=== PATIENT | female | born 1975 | race Hispanic/Latino ===

== ENCOUNTER 2019-09-10 17:26 | Inpatient (IN) | payer BC, OTHER ==
[~2019-09-10] VITALS: Ht 157.5 cm; Wt 72.6 kg
[2019-09-10 18:08] LABS: BASOPHILS % 0.4 % (0.0-1.0); EOSINOPHILS # (AUTO) 0.1 (0.0-0.4); EOSINOPHILS % 1.1 % (0.0-6.0); HEMATOCRIT 39.4 % (34.2-44.1); HEMOGLOBIN 12.7 g/dL (12.0-16.0); LYMPHOCYTES # (AUTO) 2.1 (1.0-3.2); LYMPHOCYTES % 23.2 % (18.0-39.1); MEAN CORPUSCULAR HEMOGLOBIN 28.8 pg (28-32); MEAN CORPUSCULAR HGB CONC 32.2 g/dL (31-35); MEAN CORPUSCULAR VOLUME 89.3 fL (81-99); MONOCYTES # (AUTO) 0.8 (0.2-0.8); MONOCYTES % 8.8 % (4.4-11.3); NEUTROPHILS % 66.2 % (38.7-80.0); PLATELET COUNT 336 x10e3/uL (140-360); RED BLOOD COUNT 4.41 x10e6/uL (3.6-5.1); RED CELL DISTRIBUTION WIDTH 13.1 % (11.7-14.4)
[2019-09-10 18:22] LABS: INR 0.88; PROTHROMBIN TIME 12.4 seconds (11.9-14.5)
--- NOTE | 2019-09-10 18:30 | Emergency Department Note ---
History of Present Illnes History of Present Illness Chief Complaint: Abdominal Complaints History of Present Illness This is a 44 year old female arrived to the ED for ruptured appendicitis- c/o RLQ with n/v. Historian: Patient Arrival Mode: Car Severity: moderate Onset quality: sudden Duration (how long): hour(s) Progression: worsening Treatments prior to arrival: other (seen by GI physician, has an outpt CT) Past Medical/Family History Physician Review I have reviewed the patient's past medical and family history. Any updates have been documented here. Past Medical History Recent Fever: No Clinical Suspicion of Infectio: No New/Unexplained Change in Ment: No Past Medical History: None Past Surgical History: Cholecysctectomy, Other Surgery: tonsillectomy Social History Smoking Cessation: Former smoker Counseling Performed: No Alcohol Use: None Any Illegal Drug Use: No TB Exposure/Symptoms: No Physically hurt or threatened: No Other Last Tetanus: utd Any Pre-Existing Lines (PICC,: No Is patient up to date on immun: Yes Last Flu: utd Last Pneumovax: ood Review of Systems Review of Systems Constitutional: no symptoms EENTM: no symptoms Cardiovascular: no symptoms Respiratory: no symptoms Gastrointestinal: abdominal pain, nausea, vomiting Genitourinary: no symptoms Musculoskeletal: no symptoms Neurological: no symptoms Psychological: no symptoms Endocrine: no symptoms Hematological/Lymphatic: no symptoms Review of other systems All other systems reviewed and negative. Physical Exam Related Data Allergies: Coded Allergies: No Known Allergies (Unverified , 09/10/19) Triage Vital Signs Vital Signs Date Time Temp Pulse Resp B/P (MAP) Pulse Ox O2 Delivery O2 Flow Rate FiO2 09/10/19 17:51 98.8 78 16 132/101 100 Vital signs reviewed: Yes Physical Exam CONSTITUTIONAL Constitutional: well-developed, well-nourished HENT HENT: normocephalic, atraumatic, oropharynx clear/moist, nose normal HENT L/R: left ext ear normal, right ext ear normal EYES Eyes: PERRL, conjunctivae normal NECK Neck: ROM normal PULMONARY Pulmonary: effort normal, breath sounds normal CARDIOVASCULAR Cardiovascular: regular rhythm, heart sounds normal, capillary refill normal, normal rate GASTROINTESTINAL Abdominal: soft, bowel sounds normal, tender, guarding GENITOURINARY Genitourinary: exam deferred SKIN Skin: warm, dry MUSCULOSKELETAL Musculoskeletal: ROM normal NEUROLOGICAL Neurological: alert, oriented x 3, no gross motor or sensory deficits PSYCHOLOGICAL Psychological: mood/affect normal, judgement normal Results Laboratory Result Diagram: 09/10/19 5166 Laboratory Laboratory Tests Test 09/10/19 17:45 White Blood Count 9.11 x10e3/uL (4.8-10.8) Red Blood Count 4.41 x10e6/uL (3.6-5.1) Hemoglobin 12.7 g/dL (12.0-16.0) Hematocrit 39.4 % (34.2-44.1) Mean Corpuscular Volume 89.3 fL (81-99) Mean Corpuscular Hemoglobin 28.8 pg (28-32) Mean Corpuscular Hemoglobin Concent 32.2 g/dL (31-35) Red Cell Distribution Width 13.1 % (11.7-14.4) Platelet Count 336 x10e3/uL (140-360) Neutrophils (%) (Auto) 66.2 % (38.7-80.0) Lymphocytes (%) (Auto) 23.2 % (18.0-39.1) Monocytes (%) (Auto) 8.8 % (4.4-11.3) Eosinophils (%) (Auto) 1.1 % (0.0-6.0) Basophils (%) (Auto) 0.4 % (0.0-1.0) Neutrophils # (Auto) 6.0 (2.1-6.9) Lymphocytes # (Auto) 2.1 (1.0-3.2) Monocytes # (Auto) 0.8 (0.2-0.8) Eosinophils # (Auto) 0.1 (0.0-0.4) Basophils # (Auto) 0.0 (0.0-0.1) Absolute Immature Granulocyte (auto 0.03 x10e3/uL (0-0.1) Prothrombin Time 12.4 seconds (11.9-14.5) Prothromb Time International Ratio 0.88 Lab results reviewed: Yes Imaging Imaging results reviewed: Yes Critical Care Time Subsequent provider I assumed direction of critical care for this patient from another provider of my specialty. Assessment & Plan Assessment & Plan Final Impression: (1) Appendicitis Assessment & Plan CBC, CMP CT AP findings discussed with Dr. M. Apodaca transfer to OR Depart Disposition: ADMITTED Last Vital Signs Date Time Temp Pulse Resp B/P (MAP) Pulse Ox O2 Delivery O2 Flow Rate FiO2 09/10/19 18:00 77 16 126/97 100 09/10/19 17:51 98.8 BENITO MAIN DO September 10, 2019 18:14
[2019-09-10 18:31] LABS: ALANINE AMINOTRANSFERASE 28 IU/L (0-55); ALBUMIN 3.5 g/dL (3.5-5.0); ALBUMIN/GLOBULIN RATIO 0.9 (0.8-2.0); ALKALINE PHOSPHATASE 75 IU/L (40-150); ANION GAP 12.2 mmol/L (8-16); BLOOD UREA NITROGEN 5 mg/dL (7-26); BUN/CREATININE RATIO 8 (6-25); CALCIUM 8.8 mg/dL (8.4-10.2); CARBON DIOXIDE 23 mmol/L (22-29); CHLORIDE 102 mmol/L (98-107); CREATININE, SERUM 0.62 mg/dL (0.57-1.11); EST GLOMERULAR FILTRATION RATE > 60 ML/MIN (60-); GLUCOSE 82 mg/dL (74-118); POTASSIUM 3.2 mmol/L (3.5-5.1); SODIUM 134 mmol/L (136-145)
[2019-09-10] MEDS ORDERED: SODIUM CHLORIDE 0.9% 1000ML 1,000 ML ONE (18:38)
[2019-09-10] MEDS ORDERED: SODIUM CHLORIDE 0.9% 1000ML 1,000 ML IV ONE (18:45)
[2019-09-10] MEDS ORDERED: SUGAMMADEX SODIUM 200 MG/2 ML VIAL IV ONE (18:48)
[2019-09-10] MEDS ORDERED: ROCURONIUM BROMIDE 10 MG/ML 5ML VIAL IV ONE (19:33)
[2019-09-10] MEDS ORDERED: LIDOCAINE HCL 2% LOCAL INJ 5 ML SDV VIAL INJ ONE (19:33)
[2019-09-10] MEDS ORDERED: SEVOFLURANE INHAL SOLN 250 ML PEN BTL ONE (19:33)
[2019-09-10] MEDS ORDERED: ONDANSETRON HCL INJ 2MG/ML 2ML 2 MG/ML VIAL ONE (19:33)
[2019-09-10] MEDS ORDERED: ACETAMINOPHEN 1000 MG/100 ML IV ONE (19:33)
[2019-09-10] MEDS ORDERED: DEXAMETHASONE SOD PHOS INJ 4 MG/ML VIAL ONE (19:33)
[2019-09-10] MEDS ORDERED: PROPOFOL IV EMULSION 10 MG/ML 20 ML VIAL ONE (19:33)
[2019-09-10] MEDS ORDERED: FENTANYL CITRATE/PF 100MCG/2 ML INJ ONE ×2 (19:53→21:18)
[2019-09-10] MEDS ORDERED: MORPHINE SULFATE INJ 10 MG/ML ONE (19:53)
[2019-09-10] MEDS ORDERED: MIDAZOLAM HCL 2 MG/2 ML VIAL ONE (19:53)
[2019-09-10] MEDS ORDERED: BUPIVACAINE 0.25%/EPI 30ML SDV INJ ONE (19:54)
[2019-09-10] MEDS ORDERED: HYDROCODONE/APAP 7.5MG-325MG 1 EA TAB PO PRN (21:00)
[2019-09-10] MEDS ORDERED: ACETAMINOPHEN 1000 MG/100 ML IV PRN (21:00)
--- OUTSIDE RECORDS SUMMARY | 2019-09-10 21:13 | XMS REPORT ---
Author Author [facility] t Organization [facility] Address [address] [place] [address] Phone Unavailable Care Team Providers Care Janitor Supervisor Name Role Phone MD CANDIDA WEBB PCP LUCRECIA APODACA Attkasandra Unavailable Advance Directives Directive Decision Effective Date Termination Date Comments Sour ce Yes N/A [facility] Problems Condition Name Condition Details Condition Category Status Onset Date Resolution Date Last Treatment Date Treating Clinician Comments Source Appendicitis Problem [facility] Allergies, Adverse Reactions, Alerts This patient has no known allergies or adverse reactions. Social History Social Habit Start Date Stop Date Quantity Comments Source Sex Assigned At 1975 00:00:00 1975 00:00:00 Female [facility] Medications This patient has no known medications. Vital Signs Vital Name Observation Time Observation Value Comments Source Weight 2019-09-10 17:51:00 160 [lb_av] [facility] BMI (Body Mass Index) 2019-09-10 17:51:00 29.3 kg/m2 [facility] Procedures Procedure Date / Time Performed Performing Clinician Aaron e Computed tomography of abdomen and pelvis with contrast 00:00:00 [facility] Encounters Start Date/Time End Date/Time Encounter Type Admission Type Attendi [facility] Care Department Encounter ID Source 2019-09-10 17:26:00 2019-09-10 18:51:00 Departed Emergency Room [facility] [id number] [facility] [place] 2019-09-10 15:55:00 2019-09-10 15:55:00 Registered Clinic 3 LUCRECIA APODACA [facility] [id number] [facility] Results Test Description Test Time Test Comments Results Result Comments Source Blood leukocytes automated count (number/volume) 2019-09-10 17:45:00 Test Item White Blood Count (test code = 6690-2) 9.11 [facility] erythrocytes automated count (number/volume)2019-09-10 17:45:00* Test Item Value Reference Range Interpretation Comments Red Blood Count (test code = 789-8) 4.41 [facility] hemoglobin measurement (moles/volume)2019-09-10 17:45:00* Test Item Value Reference Range Interpretation Comments Hemoglobin (test code = 34461-2) 12.7 [facility]Autom[facility] blood hematocrit (volume fraction)2019-09-10 17:45:00* Test Item Value Reference Range Interpretation Comments Hematocrit (test code = 4544-3) 39.4 [facility] CampusAutom[facility] erythrocyte mean corpuscular itdtbn1227-72-38 17:45:00* Test Item Value Reference Range Interpretation Comments Mean Corpuscular Volume (test code = 787-2) 89.3 [facility] CampusAutom[facility] erythrocyte mean corpuscular hemoglobin (mass per erythrocyte)2019-09-10 17:45:00* Test Item Value Reference Range Interpretation Comments Mean Corpuscular Hemoglobin (test code = 785-6) 28.8 [facility] CampusAutom[facility] erythrocyte mean corpuscular hemoglobin concentration measurement (mass/volume)2019-09-10 17:45:00* Test Item Value Reference Range Interpretation Comments Mean Corpuscular Hemoglobin Concent (test code = 786-4) 32.2 [facility] CampusRDW BjzJl-Gbl3243-15-22 17:45:00* Test Item Value Reference Range Interpretation Comments Red Cell Distribution Width (test code = 66061-1) 13.1 [facility] CampusAutom[facility] blood platelet count (count/volume)2019-09-10 17:45:00* Test Item Value Reference Range Interpretation Comments Platelet Count (test code = 777-3) 336 [facility] CampusAutomated blood segmented neutrophil count as percentage of total hgwufekvwj4629-91-63 17:45:00* Test Item Value Reference Range Interpretation Comments Neutrophils (%) (Auto) (test code = 90209-6) 66.2 [facility] CampusAutomated blood lymphocyte count as percentage ot total uhbhozsjzp9807-03-92 17:45:00* Test Item Value Reference Range Interpretation Comments Lymphocytes (%) (Auto) (test code = 736-9) 23.2 [facility] CampusAutomated blood monocyte count as percentage of total qeivuxlunf5094-35-75 17:45:00* Test Item Value Reference Range Interpretation Comments Monocytes (%) (Auto) (test code = 5905-5) 8.8 [facility] CampusAutomated blood eosinophil count as percentage of total qihksmizcu2911-64-03 17:45:00* Test Item Value Reference Range Interpretation Comments Eosinophils (%) (Auto) (test code = 713-8) 1.1 [facility] CampusAutomated blood basophil count as percentage of total hdiondufnd9766-44-65 17:45:00* Test Item Value Reference Range Interpretation Comments Basophils (%) (Auto) (test code = 706-2) 0.4 [facility] CampusFluoroscopic procedure less than one hour znpcvdqg5386-49-42 17:45:00* Test Item Value Reference Range Interpretation Comments IM GRANULOCYTES % (test code = IM GRANULOCYTES %) 0.3 [facility] CampusAutomated blood neutrophil count 2019-09-10 17:45:00* Test Item Value Reference Range Interpretation Comments Neutrophils # (Auto) (test code = 751-8) 6.0 [facility] CampusBlood lymphocytes count (number/volume) 2019-09-10 17:45:00* Test Item Value Reference Range Interpretation Comments Lymphocytes # (Auto) (test code = 75411-6) 2.1 [facility] CampusBlood monocytes automated count (number/volume)2019-09-10 17:45:00* Test Item Value Reference Range Interpretation Comments Monocytes # (Auto) (test code = 742-7) 0.8 [facility] CampusAutomated blood eosinophil count 2019-09-10 17:45:00* Test Item Value Reference Range Interpretation Comments Eosinophils # (Auto) (test code = 711-2) 0.1 [facility] CampusAutomated blood basophil count (count/volume)2019-09-10 17:45:00* Test Item Value Reference Range Interpretation Comments Basophils # (Auto) (test code = 704-7) 0.0 [facility] CampusFluoroscopic procedure less than one hour vxkxrbta8600-45-41 17:45:00* Test Item Value Reference Range Interpretation Comments Absolute Immature Granulocyte (auto (hannah t code = Absolute Immature Granulocyte (auto) 0.03 [facility] CampusProthrombin time (PT) in platelet poor plasma by coagulation rahcz4252-83-81 17:45:00* Test Item Value Reference Range Interpretation Comments Prothrombin Time (test code = 5902-2) 12.4 [facility] CampusINR in Platelet poor plasma by Coagulation aqtxi7718-78-33 17:45:00* Test Item Value Reference Range Interpretation Comments Prothromb Time International Ratio (test code = 6301-6) 0.88 [facility] Station[facility]um or plasma sodium measurement (moles/volume)2019-09-10 17:45:00* Test Item Value Reference Range Interpretation Comments Sodium Level (test code = 2951-2) 134 [facility] Stationerum or plasma potassium measurement (moles/volume)2019-09-10 17:45:00* Test Item Value Reference Range Interpretation Comments Potassium Level (test code = 2823-3) 3.2 [facility] Stationerum or plasma chloride measurement (moles/volume)2019-09-10 17:45:00* Test Item Value Reference Range Interpretation Comments Chloride Level (test code = 2075-0) 102 [facility] Stationerum or plasma carbon dioxide, total measurement (moles/volume)2019-09-10 17:45:00* Test Item Value Reference Range Interpretation Comments Carbon Dioxide Level (test code = 2028-9) 23 [facility] Stationerum or plasma anion iam2124-88-82 17:45:00* Test Item Value Reference Range Interpretation Comments Anion Gap (test code = 15629-6) 12.2 [facility] Stationerum or plasma urea nitrogen measurement (mass/volume)2019-09-10 17:45:00* Test Item Value Reference Range Interpretation Comments Blood Urea Nitrogen (test code = 3094-0) 5 [facility] Stationerum or plasma creatinine measurement (mass/volume)2019-09-10 17:45:00* Test Item Value Reference Range Interpretation Comments Creatinine (test code = 2160-0) 0.62 [facility] Stationerum or plasma urea nitrogen/creatinine mass [id number] 17:45:00* Test Item Value Reference Range Interpretation Comments BUN/Creatinine Ratio (test code = 3097-3) 8 [facility] CampusEstimated glomerular filtration rate (GFR) nzoaraayxbxiu3045-17-03 17:45:00* Test Item Value Reference Range Interpretation Comments Estimat Glomerular Filtration Rate (test code = 034579815) > 60 [facility] CampusGlucose eeqmsqetnhn3812-80-05 17:45:00* Test Item Value Reference Range Interpretation Comments Glucose Level (test code = EDF3463) 82 [facility] Stationerum or plasma calcium measurement (mass/volume)2019-09-10 17:45:00* Test Item Value Reference Range Interpretation Comments Calcium Level (test code = 66251-6) 8.8 [facility] Stationerum or plasma total bilirubin measurement (mass/volume)2019-09-10 17:45:00* Test Item Value Reference Range Interpretation Comments Total Bilirubin (test code = 1975-2) 0.5 [facility] CampusFluoroscopic procedure less than one hour chyjyegt8251-40-66 17:45:00* Test Item Value Reference Range Interpretation Comments Aspartate Amino Transf (AST/SGOT) (test code = Aspartate Amino Transf (AST/SGOT)) 16 [facility] Stationerum or plasma alanine aminotransferase measurement (enzymatic activity/volume)2019-09-10 17:45:00* Test Item Value Reference Range Interpretation Comments Alanine Aminotransferase (ALT/SGPT) (test code = 1742-6) 28 [facility] Stationerum or plasma protein measurement (mass/volume)2019-09-10 17:45:00* Test Item Value Reference Range Interpretation Comments Total Protein (test code = 2885-2) 7.2 [facility] Stationerum or plasma albumin measurement (mass/volume)2019-09-10 17:45:00* Test Item Value Reference Range Interpretation Comments Albumin (test code = 1751-7) 3.5 [facility] CampusPlasma globulin measurement (mass/volume) 2019-09-10 17:45:00* Test Item Value Reference Range Interpretation Comments Globulin (test code = 66109-0) 3.7 [facility] Stationerum or plasma albumin/globulin mass [id number] 17:45:00* Test Item Value Reference Range Interpretation Comments Albumin/Globulin Ratio (test code = 1759-0) 0.9 [facility] Stationerum or plasma alkaline phosphatase measurement (enzymatic activity/volume)2019-09-10 17:45:00* Test Item Value Reference Range Interpretation Comments Alkaline Phosphatase (test code = 6768-6) 75 [facility] CampusCT ABDOMEN/PELVIS [id number] 17:14:00 [facility] [address] [place] [address] Patient Name: ELENA HOWE MR #: [id number] : 1975 Age/Sex: 44/F Req #: [id number] Adm Physician: Ordered by: LUCRECIA APODACA MD t #: [id number] Location: [place] Room/Bed : Procedure: [id number] CT/CT ABDOMEN/PE LVIS W Exam Date: Exam Time: REPORT STATUS: Signed EXAMINATION: CT of the abdomen and pelvis with contrast. TECHNIQUE: Spiral CT images of the abdomen and pelvis were performed from the lung bases to the lesser trochanters after the intravenous administration of 100 cc of Isovue-370 and the oral administratio n of water. Coronal and sagittal reformatted images were obtained. JOSEPH RISON: None. CLINICAL HISTORY:Right lower quadrant pain for 5 days DISCUSSION: ABDOMEN/PELVIS: LOWER THORAX:Lung bases are clear. Bila teral breast implants are partially visualized. HEPATOBILIARY: No focal h epatic lesions. No intra or extrahepatic biliary ductal dilation. GALLBL ADDER: Cholecystectomy clips SPLEEN: No splenomegaly. PANCREAS: N o focal masses or ductal dilatation. ADRENALS: No adrenal nodules. KI DNEYS/URETERS: No hydronephrosis, stones, or solid mass lesions. Well-circumsc ribed fluid density structures in the left renal sinus, which measure approxim ately 1.3 and 1.6 cm (coronal images 63 and 60), consistent with peripelvic cy sts. PELVIC ORGANS/BLADDER: Uterus is unremarkable. T shaped IUD in place in the endometrial cavity. No adnexal masses. A well-circumscribed oval-shaped soft tissue density structure posterior to the uterus likely represents the r ight ovary. PERITONEUM/RETROPERITONEUM: No free air or free fluid. L YMPH NODES: No intra-abdominal, retroperitoneal, pelvic or inguinal lymphadeno cally. VESSELS: The celiac trunk,superior and inferior mesenteric and bilat eral renal arteries are patent The portal, superior mesenteric and splenic v eins are patent. GI TRACT: The appendix is dilated, measuring 1.2 cm in d iameter, and shows moderate wall thickening with marked enhancement, and moder ate surrounding inflammatory changes. No foci of extraluminal air or well-defi emmie enhancing fluid collections. Rest of the bowel shows no dilation or obst ruction. No pericolonic inflammatory changes. Stomach is unremarkable. BONES AND SOFT TISSUE: No aggressive lytic or suspicious sclerotic lesions. So ft tissues are grossly unremarkable. IMPRESSION: 1. Findings consi stent with acute appendicitis. No evidence of perforation or adjacent abscess formation. 2. Findings discussed with Dr. Apodaca September 10, 2019 at 1714 hours . Signed by: Dr. Catina Stanton M.D. on 09/10/2019 5:23 PM Dictat ed By: CATINA STANTON MD 1723 COPY TO: LUCRECIA APODACA MD Urine human chorionic gonadotropin (hCG) ufatwogih4597-14-45 16:40:00* Test Item Value Reference Range Interpretation Comments Urine Test (test code = 2106-3) NEGATIVE [facility]
[2019-09-11] VITALS (9 sets, daily range): BP systolic 99–126; BP diastolic 67–80
[2019-09-11] MEDS: HYDROMORPHONE 1MG/1ML INJ IV PRN ×7 (00:30→17:16)
--- NOTE | 2019-09-11 03:56 | Operative Report ---
DATE OF PROCEDURE: 09/10/2019 SURGEON: Hiram Fowler MD PREOPERATIVE DIAGNOSIS: Acute appendicitis. POSTOPERATIVE DIAGNOSIS: Acute retrocecal appendicitis. OPERATION PERFORMED: Laparoscopic appendectomy. ANESTHESIA: General. COMPLICATIONS: None. ESTIMATED BLOOD LOSS: Minimal. DESCRIPTION OF PROCEDURE: With the patient lying in bed in the supine position under good general endotracheal anesthesia, the abdomen was prepped with Betadine solution and draped in the usual manner. A Veress needle was introduced into the umbilicus and pneumoperitoneum was established without any difficulty. A 12 mm trocar was placed into the umbilicus and a 10 mm video laparoscope was placed into the intraabdominal cavity. Under direct vision, a 5 mm trocar was placed in the suprapubic region and another 5 mm trocar was placed in the left lower quadrant. Video laparoscopy at this point revealed an inflammatory mass stuck to the lateral wall on the right side consistent with appendicitis. The cecum was then mobilized medially and off the lateral gutter. The appendix was extremely enlarged and thickened, and it was tightly adherent and covered with the omentum anteriorly, and it was in a retrocecal position. The terminal ileum was stuck to the appendix. Once the omentum and the terminal ileum were , we were then able to dissect the mesentery of the appendix, which was then divided with 2 applications of the endoscopic vascular stapler. After this was done, the base of the appendix was rather inflamed, so we decided we needed to take a piece of base of the cecum in order to have a soft tissue that we could close. The echelon stapler was then introduced and 2 firings were necessary to come across the base of the cecum, making sure that we stayed away from the terminal ileum and the appendix was thus divided and . The appendix was then placed in a pouch and removed through the umbilical incision after enlarging the incision to allow for passage of the large specimen. The laparoscopy was then again carried out. The whole area was then thoroughly irrigated. Perfect hemostasis was ascertained. All layers were then closed. The midline fascia was closed with 2 nlzsuzr-al-ldsgf of 0 Vicryl. All layers were infiltrated on the way out with solution of 0.25% Marcaine. Subcutaneous tissue was approximated with 3-0 Vicryl and the skin was closed with subcuticular 5-0 Vicryl. Benzoin, Steri-Strips, and Band-Aids were applied. The sponge, lap, and needle counts were correct. The patient tolerated the procedure well and returned to the recovery room in stable condition. MD CHRISTA Khalil/KYE /[id number]
[2019-09-11] MEDS: PIPER-TAZ 3.375 GM 50 ML IV SCH ×5 (05:55→23:47)
[2019-09-11 06:19] LABS: BASOPHILS % 0.1 % (0.0-1.0); HEMATOCRIT 37.3 % (34.2-44.1); HEMOGLOBIN 12.2 g/dL (12.0-16.0); LYMPHOCYTES # (AUTO) 0.7 (1.0-3.2); LYMPHOCYTES % 7.3 % (18.0-39.1); MEAN CORPUSCULAR HEMOGLOBIN 29.5 pg (28-32); MEAN CORPUSCULAR HGB CONC 32.7 g/dL (31-35); MEAN CORPUSCULAR VOLUME 90.3 fL (81-99); MONOCYTES # (AUTO) 0.3 (0.2-0.8); MONOCYTES % 3.5 % (4.4-11.3); NEUTROPHILS # (AUTO) 8.2 (2.1-6.9); NEUTROPHILS % 88.9 % (38.7-80.0); PLATELET COUNT 317 x10e3/uL (140-360); RED BLOOD COUNT 4.13 x10e6/uL (3.6-5.1)
[2019-09-11] MEDS: DEXTROSE 5%/LACTATED RINGERS 1,000 ML IV SCH ×4 (07:00→21:40)
[2019-09-11 07:10] LABS: BLOOD UREA NITROGEN 5 mg/dL (7-26); BUN/CREATININE RATIO 8 (6-25); CALCIUM 8.1 mg/dL (8.4-10.2); CARBON DIOXIDE 20 mmol/L (22-29); CHLORIDE 105 mmol/L (98-107); CREATININE, SERUM 0.63 mg/dL (0.57-1.11); EST GLOMERULAR FILTRATION RATE > 60 ML/MIN (60-); GLUCOSE 146 mg/dL (74-118); SODIUM 134 mmol/L (136-145)
--- NOTE | 2019-09-11 08:00 | NUR ---
AA&OX3, RA, ENCOURAGED AMBULATION POC, PT VERBALIZED UNDERSTANDING, CALL LIGHT WITHIN REACH
--- NOTE | 2019-09-11 12:00 | NUR ---
MEDICATED PER MD ORDER FOR 6/10 ABD PAIN, EDUCATED TO CALL FOR ASSISTANCE PRIOR TO GETTING OOB, PT VERBALIZED UNDERSTANDING, CALL LIGHT WITHIN REACH
[2019-09-11 12:13] LABS: BAND NEUTROPHILS % (MANUAL) 5 %; LYMPHOCYTES % (MANUAL) 8 % (19-48); MONOCYTES % (MANUAL) 4 % (3.4-9.0); NEUTROPHILS % (MANUAL) 83 % (40-74); PLATELET ESTIMATE ADEQUATE; PLATELET MORPHOLOGY COMMENT NORMAL
[2019-09-11 12:14] LABS: RBC MORPHOLOGY COMMENT NORMAL
[2019-09-11] MEDS ORDERED: ZOLPIDEM TARTRATE 10 MG TAB PO PRN (13:45)
--- NOTE | 2019-09-11 17:17 | NUR ---
TOLERATING PO AT THIS TIME, MEDICATED PER MD ORDER FOR 9/10 ABD PAIN, EDUCATED TO CALL FOR ASSISTANCE BEFORE GETTING OOB, PT VERBALIZED UNDERSTANDING, CALL LIGHT WITHIN REACH
[2019-09-11] MEDS: PANTOPRAZOLE 40 MG 10ML VIAL IV SCH ×2 (21:42)
[2019-09-12 00:20] VITALS: BP 126/76
[2019-09-12 04:00] VITALS: BP 102/60
[2019-09-12] MEDS: HYDROMORPHONE 1MG/1ML INJ IV PRN ×3 (05:10→13:14)
[2019-09-12] MEDS: PIPER-TAZ 3.375 GM 50 ML IV SCH ×2 (05:59→11:51)
[2019-09-12 06:16] LABS: BASOPHILS % 0.5 % (0.0-1.0); EOSINOPHILS # (AUTO) 0.1 (0.0-0.4); EOSINOPHILS % 0.6 % (0.0-6.0); HEMOGLOBIN 11.4 g/dL (12.0-16.0); LYMPHOCYTES # (AUTO) 2.8 (1.0-3.2); LYMPHOCYTES % 33.8 % (18.0-39.1); MEAN CORPUSCULAR HEMOGLOBIN 29.8 pg (28-32); MEAN CORPUSCULAR HGB CONC 32.6 g/dL (31-35); MEAN CORPUSCULAR VOLUME 91.6 fL (81-99); MONOCYTES # (AUTO) 0.6 (0.2-0.8); MONOCYTES % 7.7 % (4.4-11.3); NEUTROPHILS # (AUTO) 4.8 (2.1-6.9); NEUTROPHILS % 57.2 % (38.7-80.0); PLATELET COUNT 271 x10e3/uL (140-360); RED BLOOD COUNT 3.82 x10e6/uL (3.6-5.1); RED CELL DISTRIBUTION WIDTH 13.2 % (11.7-14.4)
[2019-09-12 06:36] LABS: ANION GAP 10.4 mmol/L (8-16); BLOOD UREA NITROGEN < 5 mg/dL (7-26); CALCIUM 8.2 mg/dL (8.4-10.2); CARBON DIOXIDE 24 mmol/L (22-29); CHLORIDE 108 mmol/L (98-107); CREATININE, SERUM 0.59 mg/dL (0.57-1.11); EST GLOMERULAR FILTRATION RATE > 60 ML/MIN (60-); GLUCOSE 95 mg/dL (74-118); POTASSIUM 3.4 mmol/L (3.5-5.1); SODIUM 139 mmol/L (136-145)
[2019-09-12 06:43] LABS: BUN/CREATININE RATIO 8 (6-25)
--- NOTE | 2019-09-12 07:15 | NUR ---
Received bedside shift report from Bert LAWLER. Patient awake, denies pain at this time, no visible signs of distress noted. Call light within reach.
[2019-09-12 08:01] VITALS: BP 116/75
[2019-09-12 08:05] VITALS: BP 116/75
[2019-09-12] MEDS: DEXTROSE 5%/LACTATED RINGERS 1,000 ML IV SCH (08:25)
[2019-09-12 11:32] VITALS: BP 127/87
== END 2019-09-12 14:50 | disposition home or self-care (01) | DRG 343 ==
LOC: ER 17:26 → OR 19:26 → MED/SURG 21:10
PROVIDERS: ADMIT Surgery; ATTEND Surgery
PROC: 0DTJ4ZZ Resection of Appendix, Percutaneous Endoscopic Approach (ICD-10-PCS; principal; 2019-09-10 18:49)
DX: K35.80 Unspecified acute appendicitis (principal)
CPT/HCPCS: 36415; 80048; 80053; 85025; 85610; 88304; 93005; 99284; C1766; J1100; J1170; J2001; J2250; J2270; J2405; J2543; J3010; J7030

== ENCOUNTER → 2019-09-10 | Outpatient (CLI) | payer BC, OTHER ==
[~2019-09-10] MED LIST: IOPAMIDOL 370 MG/ML 200 ML INFUS..BTL INJ ONE; SODIUM CHLORIDE 0.9% 50ML 50 ML ONE
--- NOTE | 2019-09-10 17:27 | Diagnostic Imaging Report ---
EXAMINATION: CT of the abdomen and pelvis with contrast. TECHNIQUE: Spiral CT images of the abdomen and pelvis were performed from the lung bases to the lesser trochanters after the intravenous administration of 100 cc of Isovue-370 and the oral administration of water. Coronal and sagittal reformatted images were obtained. COMPARISON: None. CLINICAL HISTORY:Right lower quadrant pain for 5 days DISCUSSION: ABDOMEN/PELVIS: LOWER THORAX:Lung bases are clear. Bilateral breast implants are partially visualized. HEPATOBILIARY: No focal hepatic lesions. No intra or extrahepatic biliary ductal dilation. GALLBLADDER: Cholecystectomy clips SPLEEN: No splenomegaly. PANCREAS: No focal masses or ductal dilatation. ADRENALS: No adrenal nodules. KIDNEYS/URETERS: No hydronephrosis, stones, or solid mass lesions. Well-circumscribed fluid density structures in the left renal sinus, which measure approximately 1.3 and 1.6 cm (coronal images 63 and 60), consistent with peripelvic cysts. PELVIC ORGANS/BLADDER: Uterus is unremarkable. T shaped IUD in place in the endometrial cavity. No adnexal masses. A well-circumscribed oval-shaped soft tissue density structure posterior to the uterus likely represents the right ovary. PERITONEUM/RETROPERITONEUM: No free air or free fluid. LYMPH NODES: No intra-abdominal, retroperitoneal, pelvic or inguinal lymphadenopathy. VESSELS: The celiac trunk,superior and inferior mesenteric and bilateral renal arteries are patent The portal, superior mesenteric and splenic veins are patent. GI TRACT: The appendix is dilated, measuring 1.2 cm in diameter, and shows moderate wall thickening with marked enhancement, and moderate surrounding inflammatory changes. No foci of extraluminal air or well-defined enhancing fluid collections. Rest of the bowel shows no dilation or obstruction. No pericolonic inflammatory changes. Stomach is unremarkable. BONES AND SOFT TISSUE: No aggressive lytic or suspicious sclerotic lesions. Soft tissues are grossly unremarkable. IMPRESSION: 1. Findings consistent with acute appendicitis. No evidence of perforation or adjacent abscess formation. 2. Findings discussed with Dr. Apodaca September 10, 2019 at 1714 hours. Signed by: Dr. Kevin Stanton M.D. on 09/10/2019 5:23 PM
== END ==
LOC: CT 15:55
PROVIDERS: ATTEND Internal Medicine Gastroenterology
DX: R10.31 Right lower quadrant pain (principal)
CPT/HCPCS: 74177; 81025; Q9967